=== PATIENT | female | born 1930 | race Caucasian/White ===

== ENCOUNTER 2016-06-30 16:34 | Emergency (ER) | payer OTHER ==
--- NOTE | 2016-06-30 16:46 | EDPHY ---
H & P Time Seen by Provider: 06/30/16 16:43 HPI/ROS: CHIEF COMPLAINT: Limited trauma activation, head injury HISTORY OF PRESENT ILLNESS: The patient is brought to the emergency by paramedics as a limited trauma activation. The patient is elderly and lives in a memory unit. She reportedly had an unwitnessed mechanical fall sustaining a hematoma over her left eyebrow. The patient is unable to provide much history in the ED secondary to her dementia. The patient reportedly is on blood thinners per paramedics however there are uncertain which medication she is on. The patient is not brought with a medication list. The patient denies obvious neck pain, chest pain, abdominal pain or extremity pain. She has a skin tear to her right arm. The patient is moving all 4 extremities with 5/5 strength. REVIEW OF SYSTEMS: A comprehensive 10 point review of systems is otherwise negative aside from elements mentioned in the history of present illness. Source: Patient Exam Limitations: No limitations - Personal History Current Tetanus/Diphtheria Vaccine: Yes - Medical/Surgical History Hx Splenectomy or Spleen Trauma: No Other PMH: Cogntive Imparement, Osteoarthritis, hyperlipdemia, osteopenia, dementia - Social History Smoking Status: Unknown if ever smoked - Physical Exam Exam: General Appearance: Alert, no distress Head: Hematoma on forehead, abrasions Eyes: Pupils equal, round, reactive ENT, Mouth: No hemotympanum, no oral trauma Neck: Nontender, trachea midline Respiratory: No chest wall tender, subcutaneous air, lungs clear bilaterally Cardiovascular: Regular rate and rhythm Abdomen: Abdomen is soft and nontender, pelvis stable Skin: Skin tear right arm Back: No midline T/L/S pain Extremities: Nontender, full range of motion Neurological: Alert and oriented x1, 5/5 strength all 4 extremities, GCS 15 Allergies/Adverse Reactions: ofloxacin Allergy (Verified 03/17/16 07:17) quinine Allergy (Verified 03/17/16 07:17) oxflacacin Allergy (Uncoded 03/17/16 07:17) Home Medications: Medication Instructions Recorded Acetaminophen [Tylenol 325mg (*)] 650 mg PO Q4 PRN 03/17/16 Atorvastatin Calcium [Lipitor 10 10 mg PO DAILY@20 03/17/16 mg (*)] Cholecalciferol Vit D3 [Vitamin D3 5,000 units PO MOWETHFR@0730 03/17/16 (*)] Donepezil HCl [Aricept 5 MG (*)] 10 mg PO HS 03/17/16 Herbals/Supplements -Info Only 1 ea PO DAILY 03/17/16 Loperamide HCl [Imodium 2 mg (*)] 4 mg PO DAILY PRN 03/17/16 Magnesium Hydroxide [Milk of 30 ml PO DAILY PRN 03/17/16 Magnesia] Memantine HCl [Namenda 5 mg (*)] 5 mg PO BID@0730,21 03/17/16 Multivitamins [Multivitamin (*)] 1 each PO DAILY@0730 03/17/16 Enoxaparin [Lovenox 40 MG (*)] 40 mg SC DAILY #0 syr 03/20/16 Ondansetron Odt [Zofran Odt 4 mg 4 mg PO Q6HRS PRN #0 tab 03/20/16 (*)] Polyethylene Glycol 3350 [Miralax 17 gm PO DAILY PRN #0 pkt 03/20/16 17 gm (*)] Sennosides/Docusate Sodium 1 - 2 tab PO BID #0 tab 03/20/16 [Senokot-S] hydrALAZINE [Apresoline 10 mg (*)] 10 mg PO QID PRN #0 tab 03/20/16 traMADol [Ultram 50 mg (*)] 50 mg PO Q6HRS PRN #0 tab 03/20/16 Medical Decision Making - Diagnostics Imaging: Imaging Impressions Cervical Spine CT 06/30/16 16:40 Impression: No acute traumatic sequelae. I telephoned results to Dr. Bowen Rojas at 1732 hours. E:CB/amm Head CT 06/30/16 16:40 Impression: Negative for intracranial hemorrhage. Report telephoned to Dr. Bowen Rojas at 1725 hours. ED Course/Re-evaluation: The patient presents to the emergency department with complaints of headache following a mechanical fall. The patient has a very large hematoma to her forehead. The patient will be taken for an emergent CT scan of the head and cervical spine. The patient was downgraded by myself after I verified the patient is not on blood thinners. The patient's CT head and cervical spine are negative for acute trauma. The patient's skin tear was repaired with Steri-Strips by the tech. The patient underwent serial neurologic examinations are over a 2 hour period. The patient remains with a baseline neurologic examination and no additional traumatic injuries identified on exam. At this point time I do feel the patient can be discharged home with instructions to ice her forehead hematoma. She will be given customary return precautions. Differential Diagnosis: Differential diagnosis considered includes intracranial hemorrhage, cervical spine fracture, skull fracture, concussion Departure - Departure Disposition: Home, Routine, Self-Care Clinical Impression: Facial contusion, Skin tear Condition: Good Instructions: Facial Contusion (ED) Additional Instructions: 1. Ice area of swelling 20-30 minutes at a time several times a day for the next 2-3 days. 2. Please return to the ED for vomiting, acute altered mental status, worsening condition or other concerns. Referrals: Kee Huston MD [Primary Care Provider] - As per Instructions
[2016-06-30 18:20] VITALS: BP 136/91; PULSE 85; RESP 18; O2SAT 94
== END 2016-06-30 18:46 | disposition home or self-care (01) ==
LOC: EDUNIT#
DX: S00.83XA Contusion of other part of head, initial encounter (principal); S41.111A Laceration without foreign body of right upper arm, initial encounter; W18.39XA Other fall on same level, initial encounter; R50.9 Fever, unspecified
CPT/HCPCS: 82947-QW

== ENCOUNTER → 2017-04-23 | Outpatient (CLI) | payer OTHER | LOC: FIMAGING 08:01 | PROVIDERS: ATTEND Physician Assistant | DX: M54.16 Radiculopathy, lumbar region (principal); M25.552 Pain in left hip; M48.061 Spinal stenosis, lumbar region without neurogenic claudication; M51.26 Other intervertebral disc displacement, lumbar region; M51.27 Other intervertebral disc displacement, lumbosacral region; M70.62 Trochanteric bursitis, left hip; M25.452 Effusion, left hip; Z96.642 Presence of left artificial hip joint ==

== ENCOUNTER 2017-09-27 02:38 | Inpatient (IN) | payer OTHER ==
[2017-09-27] MEDS ORDERED: NS 500 ML IV ONE (02:42)
--- NOTE | 2017-09-27 02:45 | EDPHY ---
H & P Time Seen by Provider: 09/27/17 02:43 HPI/ROS: HPI CHIEF COMPLAINT: Found down, pain all over, right hip pain HISTORY OF PRESENT ILLNESS: 87-year-old female, history of dementia, presents emergency room by EMS after she was found down on carpeted floor, complaining of pain all over and right hip pain. Unclear when she went down. She has advanced dementia. Per EMS she hurts anywhere you press her but does complain of worsening right hip pain. Unclear exactly what happened. This was unwitnessed. Staff at her facility found her. Past Medical History: Unknown medical history except for advanced dementia Past Surgical History: No recent surgery Social History: Lives at a group home facility Family History: Noncontributory ROS REVIEW OF SYSTEMS: A comprehensive 10 point review of systems is otherwise negative aside from elements mentioned in the history of present illness. Exam Constitutional elderly, frail, triage nursing summary reviewed, vital signs reviewed, awake/alert. Eyes normal conjunctivae and sclera, EOMI, PERRLA. HENT normal inspection, atraumatic, moist mucus membranes, no epistaxis, neck supple/ no meningismus, no raccoon eyes. Respiratory clear to auscultation bilaterally, normal breath sounds, no respiratory distress, no wheezing. Cardiovascular rate normal, regular rhythm, no murmur, no edema, distal pulses normal. Gastrointestinal soft, non-tender, no rebound, no guarding, normal bowel sounds, no distension, no pulsatile mass. Genitourinary no CVA tenderness. Musculoskeletal right hip mild tenderness palpation right hip pain, with any range of motion of the right leg she has pain and screams of pain mainly right lateral hip. Right leg is otherwise neurovascular intact. no midline vertebral tenderness, full range of motion, no calf swelling, no tenderness of extremities, no meningismus, good pulses, neurovascularly intact. Skin pink, warm, & dry, no rash, skin atraumatic. Neurologic alert or x1, demented, moves all 4 extremities equally, motor intact, sensory intact, CN II-XII intact, normal cerebellar, normal vision, normal speech. Psychiatric normal mood/affect. Heme/Lymph/Immune no lymphadenopathy. Differential Diagnosis: Includes but is not limited to found down, rhabdomyolysis, dehydration, electrolyte disturbance, infection, pelvis fracture , hip fracture, soft tissue injury Medical Decision Making: Plan for this patient x-ray pelvis, x-ray right hip, basic blood work, EKG, troponin check CK. Re-evaluation: CT lumbar spine and CT pelvis called to me by Dr. Acosta. CT scan of lumbar spine shows degenerative disc disease changes. But no fracture. CT scan of the pelvis that shows a left-sided superior and inferior pubic rami fracture, additionally the left acetabulum is chip fracture, and the acetabular cup is malaligned. But no hip dislocation. No pelvic hematoma. Called to me by Dr. Acosta. EKG interpretation by me on record in [facility] system. Impression time of EKG 2:56 a.m., sinus rhythm rate of 75 no acute ischemia or signs of cardiac arrhythmia. Given the patient's pelvis fracture and left acetabular fracture the patient need to be admitted to the hospitalist service. She has advanced dementia. Spoke with Dr. Danielle Agrees to admit. Blood work, EKG reviewed. ED x-ray chest one view cardiomegaly present. Similar to previous chest x-ray. Tortuous aorta. Source: Patient, EMS - Medical/Surgical History Hx Splenectomy or Spleen Trauma: No Other PMH: Cogntive Imparement, Osteoarthritis, hyperlipdemia, osteopenia, dementia - Social History Smoking Status: Unknown if ever smoked Constitutional: Initial Vital Signs Temperature (C) 36.7 C 09/27/17 02:49 Heart Rate 84 09/27/17 02:49 Respiratory Rate 18 09/27/17 02:49 Blood Pressure 156/97 H 09/27/17 02:49 O2 Sat (%) 93 09/27/17 02:49 O2 Delivery Mode Room Air Allergies/Adverse Reactions: ofloxacin Allergy (Verified 03/17/16 07:17) quinine Allergy (Verified 03/17/16 07:17) oxflacacin Allergy (Uncoded 03/17/16 07:17) Home Medications: Medication Instructions Recorded Cholecalciferol Vit D3 [Vitamin D3 5,000 units PO MOWETHFR@0730 03/17/16 (*)] Donepezil HCl [Aricept 5 MG (*)] 10 mg PO HS 03/17/16 Magnesium Hydroxide [Milk of 30 ml PO DAILY PRN 03/17/16 Magnesia] Memantine HCl [Namenda 5 mg (*)] 5 mg PO BID@0730,21 03/17/16 Multivitamins [Multivitamin (*)] 1 each PO DAILY@0730 03/17/16 Polyethylene Glycol 3350 [Miralax 17 gm PO DAILY PRN #0 pkt 03/20/16 17 gm (*)] Diclofenac Sodium 2 gm TP DAILY 09/27/17 Hydrocod/APAP 7.5/325 in 15Ml 5 ml PO Q4 PRN 09/27/17 [Hycet Oral Liquid (*) 7.5MG-325MG/15ML] Hydrocod/APAP 7.5/325 in 15Ml 10 ml PO 06,11,16,22 09/27/17 [Hycet Oral Liquid (*) 7.5MG-325MG/15ML] PE/Shark Liver/Gly/Pet,Wh 1 shari NV TID PRN 09/27/17 [Preparation H Cream (*)] Sennosides [Senna] 5 ml PO BID PRN 09/27/17 Medical Decision Making - Data Points Laboratory Results: Laboratory Results 09/27/17 03:00 09/27/17 03:00 Medications Given: Hydrocodone Bitart/Acetaminophen (Hycet Oral Liquid) 10 ml PO ,,, NORMA Stop: 10/07/17 15:59 Last Admin: 09/27/17 20:51 Dose: Not Given Donepezil HCl (Aricept) 10 mg PO HS NORMA Stop: 03/26/18 20:59 Last Admin: 09/27/17 20:50 Dose: 10 mg Hydromorphone HCl (Dilaudid) 0.2 - 0.4 mg IVP Q4HRS PRN PRN Reason: Pain, Severe Unable to Take PO Stop: 10/07/17 04:48 Last Admin: 09/27/17 23:48 Dose: 0.4 mg Sodium Chloride (Ns) 1,000 mls @ 75 mls/hr IV CONT NORMA Stop: 03/26/18 04:59 Last Admin: 09/27/17 20:04 Dose: 1,000 mls Memantine (Namenda) 5 mg PO BID@30, NORMA Stop: 03/26/18 20:59 Last Admin: 09/27/17 20:52 Dose: 5 mg Discontinued Medications Fentanyl (Sublimaze) 25 mcg IVP EDNOW ONE Stop: 09/27/17 03:05 Last Admin: 09/27/17 03:06 Dose: 25 mcg Sodium Chloride (Ns) 500 mls @ 1,000 mls/hr IV EDNOW ONE PRN Reason: Protocol Stop: 09/27/17 03:11 Last Admin: 09/27/17 02:59 Dose: 500 mls Departure - Departure Disposition: [facility] Inpatient Acute Clinical Impression: Hip fracture Qualifiers: Encounter type: initial encounter Fracture type: closed Laterality: left Qualified Code(s): S72.002A - Fracture of unspecified part of neck of left femur , initial encounter for closed fracture Pelvis fracture Qualifiers: Encounter type: initial encounter Pelvic bone location: acetabulum Sublocation of acetabulum: other portion of acetabulum Fracture type: closed Laterality: left Qualified Code(s): S32.492A - Other specified fracture of left acetabulum, initial encounter for closed fracture Fall Qualifiers: Encounter type: initial encounter Qualified Code(s): W19.XXXA - Unspecified fall, initial encounter Condition: Fair
[2017-09-27] MEDS ORDERED: fentaNYL 100 MCG/2 ML INJ IVP ONE (03:04)
[2017-09-27 03:07] LABS: PLATELET COUNT 229 10^3/uL (150-400)
[2017-09-27 03:15] LABS: INR 1.06 (0.83-1.16)
[2017-09-27 03:33] LABS: CREATINE KINASE 44 IU/L (0-156)
--- NOTE | 2017-09-27 03:58 | CPEKG ---
Heart Rate: 75 RR Interval: 800 P-R Interval: 176 QRSD Interval: 90 QT Interval: 408 QTC Interval: 456 P Cutler: 51 QRS Cutler: 11 T Wave Cutler: 77 EKG Severity - BORDERLINE ECG - EKG Impression: SINUS RHYTHM EKG Impression: BORDERLINE INFERIOR Q WAVES Electronically Signed By: Sammy Huitron 27-Sep-2017 06:39:41
[2017-09-27] MEDS ORDERED: ACETAMINOPHEN 325 MG TAB PO PRN (04:49)
[2017-09-27] MEDS ORDERED: ACETAMINOPHEN 650 MG SUPP PR PRN (04:49)
[2017-09-27] MEDS ORDERED: ONDANSETRON 4 MG/2 ML VIAL IVP PRN (04:49)
[2017-09-27] MEDS: HYDROmorphONE/DILAUDID 1 MG/ML INJ IVP PRN ×5 (06:21→23:48)
[2017-09-27] MEDS: NS 1,000 ML IV SCH ×2 (06:21→20:04)
--- NOTE | 2017-09-27 07:02 | GHP ---
[f rep st] HISTORY AND PHYSICAL DATE OF ADMISSION: 09/27/2017 SOURCE: Patient with advanced dementia. Her daughter is at bedside and provides history. EMR was reviewed and case discussed with ED provider. CHIEF COMPLAINT: Fall, unwitnessed, and pain. HISTORY OF PRESENT ILLNESS: This is an 87-year-old female with past medical history significant for advanced dementia, osteoporosis, hyperlipidemia, chronic back pain with a history of similar unwitnessed fall in 2016, status post hemiarthroplasty on the left. The patient had an unwitnessed fall at her [facility] care facility, out of her bed. The patient was found down on the ground. It is on clear how long she had been lying on the floor. The patient was quite agitated, crying out. She was not able to specify the location of her pain. She remains a little bit agitated, but her pain appears to be more controlled at time of my interview. Patient was cooperative and lying quietly in bed. Patient's daughter denies any recent illnesses and she has a history of chronic back pain, requiring use of narcotics with [place]. She has a known displacement of the left hip prosthetic from the acetabulum. They have been trying to manage conservatively. Patient has been able to ambulate with assistance of a walker at the [facility] without significant issues. REVIEW OF SYSTEMS: Unable to obtain secondary to patient's dementia. Daughter report denies any other concerns except for a history of increasing dysphagia. ALLERGIES: ofloxacin and quinine. HOME MEDICATIONS: As per EMR. [place] 7.5/325 of 15 mL p.r.n., Senokot, MiraLAX , Zofran, multivitamin, Namenda, Milk of Mag, loperamide, donepezil, vitamin D3 , Tylenol, Citracal, vitamin D gummies. PAST MEDICAL HISTORY: Dementia, osteoporosis, hyperlipidemia, chronic back pain. PAST SURGICAL HISTORY: Left hip arthroplasty, 2016. FAMILY HISTORY: Unable to obtain secondary to patient's dementia. SOCIAL HISTORY: Patient resides at the [facility]. She did not have any history of tobacco, drugs, or alcohol. CODE STATUS: Has been DNR/DNI. PHYSICAL EXAMINATION: VITAL SIGNS: Upon arrival to the emergency department, blood pressure 156/97, heart rate is 84, respiratory rate 18, O2 saturation 93% on room air, temperature 36.7. GENERAL: No acute distress. Very pleasant, elderly, frail, demented lady who is lying in bed. She is mumbling intermittently. She does stop and becomes interactive, but has minimal verbal response which per the daughter is normal. HEAD: Normocephalic, atraumatic. Eyes, limited extraocular muscle testing. Voluntary gaze appears to be intact. The patient is not able to follow simple commands very well. Pupils are equal, round, symmetric. Decreased reactivity to light bilaterally, but symmetric. No scleral icterus, conjunctival injection. ENT: Mucous membranes appear moist. No oropharyngeal erythema or exudates. No nasal discharge. NECK: Supple, trachea midline. CV: Regular rate and rhythm. Slightly distant heart sounds. No murmurs, rubs, or gallops appreciated. RESPIRATORY: Decreased inspiratory effort. Lungs are clear to auscultation bilaterally. No wheezes, rales, or rhonchi appreciated. ABDOMEN: Positive bowel sounds. Soft, nontender to palpation. No rebound, guarding, or masses appreciated. : No suprapubic tenderness to palpation. No Perez catheter in place. EXTREMITIES: Patient without any cyanosis, clubbing, or edema appreciated. 1+ pedal pulses bilaterally and symmetric. NEURO: Grossly nonfocal. The patient is able to move her distal extremities and upper extremities. She has notable, generalized weakness, deconditioning, strength overall 4/5 in upper and lower extremities bilaterally. PSYCH: PATIENT with advanced dementia. She has quite limited verbal responses, although she is interactive and attempts to follow requests and commands. The patient is able to move all extremities, although she does not move her proximal lower extremities. She does appear to flinch when I am attempting to palpate her pelvis, particularly the left hip groin. LABORATORY STUDIES: WBC 8.92, H and H are 14.1 and 43.4, MCV 90.6, platelet count is 229, neutrophil 77.1%, 1.9% bands. PT is 14.0, INR 1.06, PTT is 26.5. Sodium 143, potassium 4.9, chloride 105, CO2 is 27, anion gap 11, BUN is 36, creatinine 0.8. GFR greater than 60, glucose is 90, calcium 9.9, magnesium 2.1 , total bilirubin is 0.5, ALT 35, AST is 45, alkaline phosphatase is 82. CK is 44. Troponin is negative. Total protein 7.12, albumin 3.8, and hemolysis is present. EKG reviewed myself, showing normal sinus rhythm in the 70s, no acute ST changes. Some artifact in various leads. QTc 456. Chest x-ray: Image reviewed, report is still pending. Clear lung mendez with cardiomegaly, tortuous aorta. Almost appears to have widening of the mediastinum, however, this is compared to previous imaging studies and appears similar. Hips showing a left hemiarthroplasty with some displacement in the acetabulum. Degenerative joint changes noted. No acute fractures. CT lumbar spine and pelvis: Preliminary report negative for any acute lumbar spine findings. Lateral subluxation of acetabular component with impaction of the lateral acetabulum on the left of the hip. Anterior acetabular corner fracture there. Left superior and inferior pubic rami fractures. Small left pelvic hematoma adjacent to the superior ramus. ASSESSMENT AND PLAN: Pleasant 87-year-old female with history of advanced dementia, status post a mechanical, unwitnessed fall at her memory care facility , presents with acute pain. 1. Left superior, inferior pubic rami fracture. The patient did receive some fentanyl in emergency department. She appears to be more comfortable. She is still quite cautious of exam over the left hip, but otherwise, she is not able to verbalize exactly where her pain is. We will continue with some gentle pain management given patient's frail age and history of chronic narcotic use. Consider pelvic sling for support. Physical Therapy, Occupational Therapy consultation in the morning as well. May require orthopedic consultation if not done in the emergency room. 2. Acute pain due to trauma. Titrate up the patient's [place]. Monitor closely with sedatives in setting of patient's elderly age and dementia. Advised daughter that the patient may continue to be slightly uncomfortable due to the fractures, but we will try to balance her need for pain management and risk of causing worsening mental status. 3. Mechanical fall suspected. The patient is unable to provide any history due to her dementia. She will have a bed alarm in place. At this time, she has not tried to get out of bed. 4. Chronic back pain. Continue [place] as noted above. 5. Osteoporosis. Fall precautions as noted above. Resume her vitamin supplements at discharge. 6. Hyperlipidemia. Continue statin. CK was within normal limits. 7. Dementia, quite advanced. Continue Namenda and Aricept as tolerated. 8. Left acetabular displacement from a chip fracture. Daughter reports that there had been some injury and this finding was not brand-new. Again, consider consultation with Orthopedic Surgery as per day team. 9. Fluid, electrolyte, nutrition, intravenous fluids, dysphagia. Electrolyte replacement if needed. Diet, dysphagia diet 2 ordered, mechanical soft. Daughter reports the patient has been struggling, increasingly with solid and liquid foods in her medications. May need to consider Speech Therapy evaluation while patient is here. Will plan to monitor her and advance diet as tolerated and consult Speech Therapy if any concerns or issues. 10. Prophylaxis. Sequential compression devices. Holding anticoagulation pending reassessment. 11. Code status is do not resuscitate, do not intubate per previous records. DISPOSITION: Patient admitted to observation status on the med surg floor. Possibly less than 2 midnight stay as patient is able to mobilize and get back to baseline following her pubic rami fractures. /[id number]/MODL MTDD
[2017-09-27] MEDS ORDERED: HYDROCOD/APAP 7.5/325 IN 15ML UDCUP PO PRN (12:42)
[2017-09-27] MEDS ORDERED: PREPARATION H 51 GM CRTUBE PR PRN (12:42)
[2017-09-27] MEDS ORDERED: SENNOSIDES 17.6 MG/10 ML UDL PO PRN (12:42)
[2017-09-27] MEDS ORDERED: POLYETHYLENE GLYCOL 3350 17 GM PKT PO PRN (12:42)
[2017-09-27] MEDS ORDERED: MAGNESIUM HYDROXIDE 30 ML UDCUP PO PRN (13:00)
--- NOTE | 2017-09-27 13:02 | HOSPPROG ---
Hospitalist Progress Note Assessment/Plan: 87y female with fall. Pain. #Left superior, inferior rami fx -pt/ot #Chronic back pain -Pt/OT #Dementia -severe #Falls -multiple per family #Dispo -would like to return to [facility] -D/W Subjective: Asleep, arousable. Objective: Vital Signs Temp Pulse Resp BP Pulse Ox 36.2 C 92 18 163/103 H 95 09/27/17 12:09 09/27/17 12:09 09/27/17 12:09 09/27/17 12:09 09/27/17 12:09 09/26/17 09/27/17 09/28/17 05:59 05:59 05:59 Intake Total 250 Balance 250 PT 14.0 SEC (12.0-15.0) 09/27/17 03:00 INR 1.06 (0.83-1.16) 09/27/17 03:00 - Physical Exam Constitutional: appears nourished, chronically ill appearing Eyes: PERRL, anicteric sclera Ears, Nose, Mouth, Throat: moist mucous membranes, hard of hearing Cardiovascular: regular rate and rhythym, No JVD Respiratory: no respiratory distress, reduced air movement Gastrointestinal: No tenderness, No ascites Skin: warm, normal color Musculoskeletal: joint tenderness, pain with ROM, generalized weakness Neurologic: No AAOx3 Psychiatric: not anxious, poor insight, poor judgement, poor memory ICD10 Worksheet Patient Problems: Problems Problem Status Onset Left displaced femoral neck fracture Acute Hip fracture Acute Pelvis fracture Acute Fall Acute
--- NOTE | 2017-09-27 14:28 | ASMTCMCOM ---
CM Note CM Note Notes: Patient admitted early this AM after falling and sustaining multiple fractures. An ortho consult is ordered and pending. Patient lives at [facility]. She has a very supportive daughter, Jorge, at bedside. PT/OT have been ordered and are also pending. Her discharge needs are TBD; Case Management will follow. Date Signed: 09/27/2017 02:27 PM Electronically Signed By:Jazmyn Rosas RN
[2017-09-27] MEDS: HYDROCOD/APAP 7.5/325 IN 15ML UDCUP PO SCH ×2 (17:02→20:51)
[2017-09-27] MEDS: DONEPEZIL HCL 5 MG TAB PO SCH (20:50)
[2017-09-27] MEDS: MEMANTINE HCL 5 MG TAB PO SCH (20:52)
[2017-09-28] MEDS: HYDROCOD/APAP 7.5/325 IN 15ML UDCUP PO SCH ×4 (04:52→20:50)
[2017-09-28] MEDS: MEMANTINE HCL 5 MG TAB PO SCH ×2 (09:29→20:50)
[2017-09-28] MEDS: MULTIVITAMINS 1 EACH TAB PO SCH (09:29)
[2017-09-28] MEDS: NS 1,000 ML IV SCH ×2 (09:50→20:51)
[2017-09-28] MEDS ORDERED: METHOCARBAMOL 750 MG TAB PO PRN (10:04)
[2017-09-28] MEDS: DICLOFENAC SODIUM 1% 100 GM GEL TP SCH (10:26)
--- NOTE | 2017-09-28 10:53 | HOSPPROG ---
Hospitalist Progress Note Assessment/Plan: 87y female with fall. Pain. #Left superior, inferior rami fx -pt/ot -ortho consult #Chronic back pain -PT/OT #Dementia -severe #Falls -multiple per family #Dispo -would like to return to [facility] -D/W CM -palliative care consult -place dozier for comfort Subjective: Arousable, in pain when moving. Daughter at bedside. Objective: Vital Signs Temp Pulse Resp BP Pulse Ox 35.9 C L 64 16 157/99 H 94 09/28/17 08:00 09/28/17 08:00 09/28/17 08:00 09/28/17 08:00 09/28/17 08:00 09/27/17 09/28/17 09/29/17 05:59 05:59 05:59 Intake Total 250 1881 Output Total 200 Balance 250 1681 PT 14.0 SEC (12.0-15.0) 09/27/17 03:00 INR 1.06 (0.83-1.16) 09/27/17 03:00 - Physical Exam Constitutional: chronically ill appearing, uncomfortable Eyes: PERRL, anicteric sclera Ears, Nose, Mouth, Throat: moist mucous membranes, hearing normal Cardiovascular: No JVD, No edema Respiratory: no respiratory distress, reduced air movement Gastrointestinal: No tenderness, No ascites Skin: warm, normal color Musculoskeletal: no joint effusions, pain with ROM, generalized weakness Neurologic: No AAOx3 Psychiatric: not anxious, poor insight, poor judgement, poor memory, No thought process linear ICD10 Worksheet Patient Problems: Problems Problem Status Onset Left displaced femoral neck fracture Acute Hip fracture Acute Pelvis fracture Acute Fall Acute
--- NOTE | 2017-09-28 14:25 | PDMN ---
Medical Necessity Medical necessity: Change to inpt 09/28/17 as pt meets criteria for LOS>2mn for L sup and inf rami fx's and MD order. PT/OT evals and palliative care consult pending, pt requires ongoing pain management, IVF, comorbid adv age w/dementia.
--- NOTE | 2017-09-28 15:11 | SOAPPROG ---
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 Plan:No surgery needed. The left acetabulum is a chronic condition that will not likely need any intervention nor is it likely painful. Pubic Rami fractures will be painful for 7-14 days but she may mobilize with wbat B LE's. Can be followed as outpatient as needed for orthopedic needs. 09/28/17 15:07 09/28/17 15:11 Subjective: Sleeping. Spoke with Daughter. Objective: Vital Signs Temp Pulse Resp BP Pulse Ox 35.9 C L 59 L 16 157/99 H 92 09/28/17 08:00 09/28/17 12:00 09/28/17 12:00 09/28/17 08:00 09/28/17 12:00 PT 14.0 SEC (12.0-15.0) 09/27/17 03:00 INR 1.06 (0.83-1.16) 09/27/17 03:00 See consultation note ICD10 Worksheet Patient Problems: Problems Problem Status Onset Fall Acute Hip fracture Acute Pelvis fracture Acute Left displaced femoral neck fracture Acute
--- NOTE | 2017-09-28 15:52 | GCON ---
[f rep st] CONSULTATION Falguni is known to me as much as I treated her 2 years ago for a left hip femoral neck fracture. I treated her with a hemiarthroplasty for left hip femoral neck fracture. I was asked to see her atif perez, 2 days after admission for orthopedic specialty consultation. She is now 87 years old and lives a t [place] in the Memory Care Unit. She has advanced dementia and at this stage, no longer necess alissonly recognizes her daughter. She was found down 3 days ago and was transported to [facility] emergency department, where they identified left superior and inferior pubic rami fracture s. She is minimally communicative and complains of pain in the left pelvis region and left leg, but does not necessarily localize precisely. X-rays revealed the above-noted fractures. There is also a CT scan which I have reviewed. There is a question of an acetabular component of her hemiarthroplas ty and whether this is seated appropriately in her acetabulum. Otherwise, her medical history is unc hanged from that which I have reviewed from her emergency department intake and her H and P at [facility] for this admission. PHYSICAL EXAMINATION: Finds her to be a sleeping, elderly, cachectic woman. She is arousable, but o nly to relatively noxious stimuli. She has normal reflexes in the bilateral lower extremities. Afte r arousing her, she does have volitional motion in her legs. Rocking of the pelvis did not wake her, nor did Shuck test of the legs. To the best of my ability, she has a normal sensory examination. H owever, she certainly was not cooperative with this examination, so the accuracy of this is clearly q uestionable. She has a bounding dorsalis pedis pulse bilaterally. I see no evidence of swelling abo ut the thigh, knee, calf, ankle or bilateral feet. I have reviewed her x-rays including CT scan as noted above. This shows early acetabular wear on the left acetabulum from her hemiarthroplasty component. There is a bi-concaved section in hemiarthropl asty head component. It is not seated deeply in the acetabulum. This is likely due to early wear o r cystic changes in the superior dome of the acetabulum. If she was not complaining of leg pain prev iously with ambulation, I think it best to leave this situation as it is. Her plain pelvis x-rays he r suggestive of a superior and inferior pubic rami fracture, which are somewhat corroborated on her C T scan, however, these are really entirely nondisplaced. ASSESSMENT/PLAN: Nondisplaced inferior and superior left pubic rami fractures. These do not require any treatment other than pain medication and mobilization as tolerated. I think that her hip is in a stable situation. However, she is slightly predisposed to hip dislocation based on the position of her components. I do not see CT scan evidence of an acute fracture of the superior dome of the acet abulum. However, collapsed osteoporotic bone could certainly not necessarily show accurately with a CT scan. If she has instability of her hip, then I would certainly re-engage and consider a potentia l revision of this. However, in talking to her daughter today, her cognitive demise over the last se veral 5 months or so has been fairly significant and they are thinking more along the lines of pallia tive care at this stage. I will sign off at this point from the orthopedic service. If her situatio n changes, please do not hesitate to call me back. /[id number]/MODL
--- NOTE | 2017-09-28 16:19 | ASMTCMCOM ---
CM Note CM Note Notes: James Garcia with palliative care met with pt and dghtrs Jorge ([facility]PO[facility]) and [place] today (see note). Jo-Ann informational is scheduled for tomorrow at 11.30. The family hopes pt can return to [place] [facility]; this CM spoke with Alannah SALAS at [facility] who requested clinicals faxed to [phone]. Alannah indicated she may need to complete an on-site assessment of pt before "approving" of pt return to [facility]. Updated pt dghtr [place], she reports they have been in touch with [facility] staff also. CM to follow. Date Signed: 09/28/2017 04:19 PM Electronically Signed By:CARLOS Jacobo
[2017-09-28] MEDS: DONEPEZIL HCL 5 MG TAB PO SCH (20:49)
[2017-09-28] MEDS: ENOXAPARIN 40 MG/0.4 ML SYR SC SCH (20:49)
[2017-09-29] MEDS: HYDROmorphONE/DILAUDID 1 MG/ML INJ IVP PRN (05:23)
[2017-09-29] MEDS: HYDROCOD/APAP 7.5/325 IN 15ML UDCUP PO SCH ×4 (05:25→21:39)
--- NOTE | 2017-09-29 08:57 | HOSPPROG ---
Hospitalist Progress Note Assessment/Plan: Patient is an 87-year-old female who lives at [place] in the memory care unit. She has advanced dementia and was found down several days prior to admission was transported to [facility] for further evaluation at that time it was noted that she had a left superior and inferior pubic rami fractures. She was evaluated by Orthopedics. Appreciate their involvement with the patient. Today is my 1st encounter with the patient. Chart reviewed. #Left superior, inferior rami fx -pt/ot -appreciate ortho involvement #Chronic back pain -PT/OT #Dementia -severe #Falls -multiple per family #Dispo -would like to return to [facility] -palliative care consult today, patient not eating or drinking, unable to tell me if she is having pain, will add scheduled Tylenol along w the norco -place dozier for comfort Subjective: Ny isn't able to answer my questions, smiles frequently and stares off. Objective: Vital Signs Temp Pulse Resp BP Pulse Ox 37.4 C 82 18 164/87 H 94 09/29/17 08:00 09/29/17 08:00 09/29/17 08:00 09/29/17 08:00 09/29/17 08:00 09/28/17 09/29/17 09/30/17 05:59 05:59 05:59 Intake Total 1000 Balance 1000 PT 14.0 SEC (12.0-15.0) 09/27/17 03:00 INR 1.06 (0.83-1.16) 09/27/17 03:00 - Physical Exam Constitutional: other (thin) Eyes: PERRL Ears, Nose, Mouth, Throat: hearing normal, oral thrush Respiratory: no respiratory distress Gastrointestinal: normoactive bowel sounds Skin: warm Musculoskeletal: generalized weakness Neurologic: other (alert, not able to answer questions) Psychiatric: poor judgement, poor memory ICD10 Worksheet Patient Problems: Problems Problem Status Onset Fall Acute Hip fracture Acute Pelvis fracture Acute Left displaced femoral neck fracture Acute
[2017-09-29] MEDS: CHOLECALCIFEROL VIT D3 1,000 UNITS TAB PO SCH (10:01)
[2017-09-29] MEDS: DICLOFENAC SODIUM 1% 100 GM GEL TP SCH (10:01)
[2017-09-29] MEDS: MEMANTINE HCL 5 MG TAB PO SCH ×2 (10:02→21:39)
[2017-09-29] MEDS: MULTIVITAMINS 1 EACH TAB PO SCH (10:02)
[2017-09-29] MEDS: ACETAMINOPHEN 650 MG/20.3 ML UDCUP PO SCH ×2 (14:28→21:46)
--- NOTE | 2017-09-29 16:58 | ASMTCMCOM ---
CM Note CM Note Notes: Valencia Dias applications administrator with [facility] states pt needs to be on hospice to return. Shea Valentin with [facility] met with pt dghtrs Jorge and Salina today for informational and after discussing palliative/hospice dghtrs decide they want d/c with [facility] Hospice back to [place] with supportive non-skilled home care. Hospice order sent to [facility] in [employer]. [facility] RN Ale completed on-site assessment today and cannot approve pt return quite yet; Ale reports pt pain was not under control and pt would not get up. Ale states she may need to return to eval pt in the morning. Updated Shea, equipment will not be ordered yet and she may try to be present at hospital when Ale is here in am. Valencia will provide [place] and Jorge the contact information for their recommendation for unskilled care for pt at night. CM to follow. D/c plan of care: [facility] still assessing if pt is approved to return with hospice. Date Signed: 09/29/2017 04:58 PM Electronically Signed By:CARLOS Jacobo
[2017-09-29] MEDS: ENOXAPARIN 40 MG/0.4 ML SYR SC SCH (21:38)
[2017-09-29] MEDS: DONEPEZIL HCL 5 MG TAB PO SCH (21:39)
[2017-09-30] MEDS: HYDROCOD/APAP 7.5/325 IN 15ML UDCUP PO SCH ×2 (05:25→08:36)
[2017-09-30] MEDS: ACETAMINOPHEN 650 MG/20.3 ML UDCUP PO SCH (08:11)
[2017-09-30] MEDS: DICLOFENAC SODIUM 1% 100 GM GEL TP SCH (08:12)
[2017-09-30] MEDS: CHOLECALCIFEROL VIT D3 1,000 UNITS TAB PO SCH (08:12)
[2017-09-30 08:35] VITALS: BP 172/90
--- NOTE | 2017-09-30 09:36 | HOSPPROG ---
Hospitalist Progress Note Assessment/Plan: Patient is an 87-year-old female who lives at [place] in the memory care unit. She has advanced dementia and was found down several days prior to admission was transported to [facility] for further evaluation at that time it was noted that she had a left superior and inferior pubic rami fractures. She was evaluated by Orthopedics. Appreciate their involvement with the patient. #Left superior, inferior rami fx -did overall well this morning w PT -appreciate ortho involvement #Chronic back pain -PT/OT #Dementia -severe #Falls -multiple per family #Dispo -return to [place] today with Hospice Subjective: Falguni only moans at times and stares. Objective: Vital Signs Temp Pulse Resp BP Pulse Ox 36.6 C 60 18 172/90 H 96 09/30/17 08:00 09/30/17 08:00 09/30/17 08:00 09/30/17 08:00 09/30/17 08:00 09/29/17 09/30/17 10/01/17 05:59 05:59 05:59 Intake Total 1000 Output Total 250 Balance 1000 -250 PT 14.0 SEC (12.0-15.0) 09/27/17 03:00 INR 1.06 (0.83-1.16) 09/27/17 03:00 - Physical Exam Constitutional: other (thin) Eyes: PERRL Ears, Nose, Mouth, Throat: hearing normal Cardiovascular: regular rate and rhythym Respiratory: no respiratory distress Skin: warm Musculoskeletal: generalized weakness Neurologic: other (alert but not conversant) Psychiatric: poor memory ICD10 Worksheet Patient Problems: Problems Problem Status Onset Fall Acute Hip fracture Acute Pelvis fracture Acute Left displaced femoral neck fracture Acute
--- NOTE | 2017-09-30 09:47 | PDIAF ---
- Diagnosis Diagnosis: left inferior, superior ramus fx, severe dementia Code Status: Do Not Resuscitate - Medication Management Discharge Medications: Medications to Continue on Transfer Cholecalciferol Vit D3 [Vitamin D3 (*)] 5,000 units PO MOWETHFR@0730 03/17/16 [ Last Taken 09/24/17] Donepezil HCl [Aricept 5 MG (*)] 10 mg PO HS 03/17/16 [Last Taken Unknown] Magnesium Hydroxide [Milk of Magnesia] 30 ml PO DAILY PRN 03/17/16 [Last Taken Unknown] Memantine HCl [Namenda 5 mg (*)] 5 mg PO BID@0730,21 03/17/16 [Last Taken ] Multivitamins [Multivitamin (*)] 1 each PO DAILY@0730 03/17/16 [Last Taken Unknown] Polyethylene Glycol 3350 [Miralax 17 gm (*)] 17 gm PO DAILY PRN #0 pkt 03/20/16 [Last Taken 09/24/17] Diclofenac Sodium 2 gm TP DAILY 09/27/17 [Last Taken 09/24/17] Hydrocod/APAP 7.5/325 in 15Ml [Hycet Oral Liquid (*) 7.5MG-325MG/15ML] 5 ml PO Q4 PRN 09/27/17 [Last Taken Unknown] Hydrocod/APAP 7.5/325 in 15Ml [Hycet Oral Liquid (*) 7.5MG-325MG/15ML] 10 ml PO 06,11,16,22 09/27/17 [Last Taken Unknown] PE/Shark Liver/Gly/Pet,Wh [Preparation H Cream (*)] 1 shari [place] TID PRN 09/27/17 [ Last Taken Unknown] Sennosides [Senna] 5 ml PO BID PRN 09/27/17 [Last Taken Unknown] Acetaminophen [Tylenol 650/20.3ML Oral Liq (*)] 650 mg PO TID udcup 09/30/17 [ Last Taken Unknown] Methocarbamol [Robaxin 750 mg (*)] 750 mg PO TID PRN #30 tab 09/30/17 [Last Taken Unknown] Discharge Medications: Refer to the Discharge Home Medication list for PRN reason. PICC Care - Routine: N/A - Orders Diet Recommendation: no restrictions on diet Diet Texture: Regular Texture Diet Additional Instructions: script for Robaxin to be filled here at [facility]' (this may help w her pain but also makes her higher risk of falling) patient to continue schedule Vicodin and Tylenol care per hospice - Follow Up Care Current Providers and Referrals: Patient,NotPresent [Unknown] - As per Instructions
[2017-09-30] MEDS: MEMANTINE HCL 5 MG TAB PO SCH (09:54)
[2017-09-30] MEDS: MULTIVITAMINS 1 EACH TAB PO SCH (09:54)
--- NOTE | 2017-09-30 11:46 | GDS ---
[f rep st] DISCHARGE SUMMARY DISCHARGE DIAGNOSES: 1. Left superior inferior pubic rami fracture. 2. Chronic back pain. 3. Severe dementia. 4. Falls. CONSULTATION: Dr. David Rebolledo. HISTORY: Briefly, the patient is an 87-year-old female who lives at [facility] care unit. S he has advanced dementia and was found down several days prior to admission, [facility]. She was seen by Orthopedics, who noted that she had a left superior inferior pubic rami fracture. She actually has done well with ambulation. Her biggest iss ue is that her dementia is so severe that she does not eat or drink much. The plan is for her to go to [place] today with hospice. HOSPITAL COURSE: 1. Left superior inferior pubic rami fracture, treating her with scheduled [place], as well as Tylenol . 2. Chronic back pain. Doing overall well ambulating. 3. Dementia, so severe that she does not eat or drink well. 4. Falls. These are multiple, per the family. DISCHARGE CONDITION: Stable, except for elevated blood pressure. Her blood pressure is 172/90. Hea rt rate is 62. Respiratory rate of 18. O2 saturation on 2 L is 96%. Temperature is 36.6 Celsius. DISCHARGE MEDICATIONS: Please see the EMR. DISCHARGE INSTRUCTIONS: Care per hospice. Greater than 30 minutes discharging and coordinating the patient's care. /[id number]/MODL
--- NOTE | 2017-09-30 14:00 | ASMTCMCOM ---
CM Note CM Note Notes: Pt is approved to return to [place], spoke with MARITZA Aguilera. Shea with [facility] has scheduled stretcher transport for 2.30 and equipment is ordered. Pt dghtrs are aware of transport time. Orders sent to [facility] ([employer]) and [facility] (fax). Dghtr to get pt robaxin filled at [facility] so pt has it immediately available. Date Signed: 09/30/2017 01:59 PM Electronically Signed By:CARLOS Jacobo
--- NOTE | 2017-09-30 14:01 | ASMTLACE ---
LACE Length of stay for Answers: 2 days current admission Acuity / Level of Answers: Yes Care: Did the patient have an inpatient admission? Comorbidities - select Answers: Dementia all that apply History of falls Opioid dependence / Chronic pain Palliative care / End of life trajectory # of Emergency department Answers: 1-2 visits in the last 6 months Score: 18 Date Signed: 09/30/2017 02:00 PM Electronically Signed By:CARLOS Jacobo
[2017-09-30] MEDS: HYDROmorphONE/DILAUDID 1 MG/ML INJ IVP PRN (14:29)
--- NOTE | 2017-09-30 14:47 | ASDISCHSUM ---
Discharge Information Plan Status:Hospice-Home Medically Cleared to Leave: Discharge Date:09/30/2017 02:40 PM CM D/C Disposition:Hospice Home ADT D/C Disposition:Hospice Home Projected Discharge Date:09/30/2017 11:00 AM Transportation at D/C:ALS/BLS Discharge Delay Reason: Follow-Up Date:09/30/2017 11:00 AM Discharge Slot: Final Diagnosis: Placement Information Referral Type:Palliative Care Referral ID:[id number] Provider Name: Address 1: Phone Number: Address 2: Fax Number: City: Selection Factors: State: Referral Type:*Hospice Referral ID:[id number] Provider Name:[facility] Address 1:[address] Phone Number: Address 2: Fax Number: City:[place] Selection Factors: State:[place] Patient Contact Information Contact Name:CHRISTEN Relationship:Daughter Address:[address] City:[place] Alternate Phone: State/Zip Code:[place] [address] Email: Financial Information Financial Class:Medicare Primary Plan Desc:MEDICARE INPATIENT Primary Plan Number:[id number] Secondary Plan Desc:DARCY GUPTA PPO Secondary Plan Number:[id number] Assessment Information LACE LACE Length of stay for Answers: 2 days current admission Acuity / Level of Answers: Yes Care: Did the patient have an inpatient admission? Comorbidities - select Answers: Dementia all that apply History of falls Opioid dependence / Chronic pain Palliative care / End of life trajectory # of Emergency department Answers: 1-2 visits in the last 6 months Score: 18 Date Signed: 09/30/2017 02:00 PM Electronically Signed By:CARLOS Jacobo [facility] CM Progress Note CM Note CM Note Notes: Patient admitted early this AM after falling and sustaining multiple fractures. An ortho consult is ordered and pending. Patient lives at [facility]. She has a very supportive daughter, Jorge, at bedside. PT/OT have been ordered and are also pending. Her discharge needs are TBD; Case Management will follow. Date Signed: 09/27/2017 02:27 PM Electronically Signed By:Jazmyn Rosas RN [facility] CM Progress Note CM Note CM Note Notes: James Garcia with palliative care met with pt and dghtrs Jorge ([facility]) and [place] today (see note). Jo-Ann informational is scheduled for tomorrow at 11.30. The family hopes pt can return to [place]; this CM spoke with Alannah SALAS at [facility] who requested clinicals faxed to [phone]. Alannah indicated she may need to complete an on-site assessment of pt before "approving" of pt return to . Updated pt dghtr [place], she reports they have been in touch with [facility] staff also. CM to follow. Date Signed: 09/28/2017 04:19 PM Electronically Signed By:CARLOS Jacobo [facility] CM Progress Note CM Note CM Note Notes: Valencia Dias community administrator with [facility] states pt needs to be on hospice to return. Shea Valentin with [facility] met with pt dghtrs Jorge and [place] today for informational and after discussing palliative/hospice dghtrs decide they want d/c with [facility] Hospice back to [place] with supportive non-skilled home care. Hospice order sent to [facility] in [employer]. [facility] MARITZA Aguilera completed on-site assessment today and cannot approve pt return quite yet; Ale reports pt pain was not under control and pt would not get up. Ale states she may need to return to al pt in the morning. Updated Shea, equipment will not be ordered yet and she may try to be present at hospital when Ale is here in am. Valencia will provide [place] and Jorge the contact information for their recommendation for unskilled care for pt at night. CM to follow. D/c plan of care: [facility] still assessing if pt is approved to return with hospice. Date Signed: 09/29/2017 04:58 PM Electronically Signed By:CARLOS Jacobo [facility] CM Progress Note CM Note CM Note Notes: Pt is approved to return to [place], spoke with MARITZA Aguilera. Shea carlos a [facility] has scheduled stretcher transport for 2.30 and equipment is ordered. Pt dghtrs are aware of transport time. Orders sent to [facility] ([employer]) and [facility] (fax). Dghtr to get pt robaxin filled at [facility] so pt has it immediately available. Date Signed: 09/30/2017 01:59 PM Electronically Signed By:CARLOS Jacobo Intervention Information Intervention Type:*WALDROP-Signed Date of Service:09/27/2017 11:00 AM Patient Type:Observation Staff Member:Gabby Boyle Hours: Discipline: Severity: Comment:
== END 2017-09-30 14:40 | disposition hospice, home (50) | DRG 536 ==
LOC: EDUNIT# → F3N 06:02 → OBSVTOIN 09-28 10:57
PROVIDERS: ADMIT Family Medicine; ATTEND Family Medicine
DX: S32.502A Unspecified fracture of left pubis, initial encounter for closed fracture (principal); W19.XXXA Unspecified fall, initial encounter; Y92.199 Unspecified place in other specified residential institution as the place of occurrence of the external cause; G89.29 Other chronic pain; F03.90 Unspecified dementia, unspecified severity, without behavioral disturbance, psychotic disturbance, mood disturbance, and anxiety; E78.5 Hyperlipidemia, unspecified; M16.12 Unilateral primary osteoarthritis, left hip; M81.0 Age-related osteoporosis without current pathological fracture; Z91.81 History of falling; Z96.642 Presence of left artificial hip joint; Z87.81 Personal history of (healed) traumatic fracture
CPT/HCPCS: 96374; 97116-GP; 97162-GP; 97166-GO; 97530-GP; 97535-GO; G0378; G8978-GP-CK; G8979-GP-CI; G8987-GO-CM; G8988-GO-CJ; J1170; J1650; J3010